=== PATIENT | male | born 1945 | race Caucasian/White ===

== ENCOUNTER 2017-11-30 10:00 | Inpatient (IN) ==
[2017-11-30 12:51] LABS: Appearance,Urine HAZY; Bacteria,Urine 0 /hpf (0); Bilirubin,Urine NEG (NEG); Color,Urine YELLOW; Glucose,Urine (UA) NEGATIVE (NEG); Leukocyte Esterase,Urine 25 /uL (NEG); Mucus,Urine FEW /hpf (0); Protein,Urine 30 mg/dL (NEG); Specific Gravity,Urine 1.027 (1.000-1.035); Urine Blood NEG mg/dL (<0.03); Urine RBC 3 /hpf (0-1); Urine Squamous Epithelial Cell 1 /hpf (0-4); Urine WBC 17 /hpf (0-4)
[2017-11-30 13:01] LABS: Basophils # (Auto) 0 K/mcL (0.0-0.3); Basophils % (Auto) 0.5 % (0.0-2.0); Eosinophils # (Auto) 0.2 K/mcL (0.0-0.7); Eosinophils % (Auto) 2.6 % (0.0-7.0); Lymphocytes % (Auto) 31.3 % (15.5-49.0); Mean Cell Volume 89.7 fL (80.0-100.0); Mean Corpuscular HGB Conc 33.8 g/dL (31.0-36.0); Mean Corpuscular Hemoglobin 30.3 pg (26.0-34.0); Monocytes # (Auto) 0.8 K/mcL (0.1-0.9); Monocytes % (Auto) 13.6 % (1.0-12.0); Platelet Count 202 K/mcL (140-440); RBC 4.96 M/mcL (4.50-5.90); Red Cell Distribution Width 13.5 % (11.5-14.5)
[2017-11-30 13:15] LABS: Blood Urea Nitrogen 20 mg/dl (8-23)
[2017-12-04] MEDS ORDERED: CELECOXIB 200 MG CAPSULE PO SCH (06:00)
[2017-12-04] MEDS ORDERED: ceFAZolin 1 GM VIAL IV SCH (06:00)
[2017-12-04] MEDS ORDERED: ACETAMINOPHEN 500 MG TABLET PO SCH (06:00)
[2017-12-04] MEDS ORDERED: PREGABALIN 75 MG CAPSULE PO SCH (06:00)
[2017-12-04] MEDS ORDERED: oxyCODONE 10 MG TAB.ER.12H PO SCH (06:00)
[2017-12-04 07:26] LABS: Appearance,Urine HAZY; Bacteria,Urine 0 /hpf (0); Bilirubin,Urine NEG (NEG); Color,Urine YELLOW; Glucose,Urine (UA) NEGATIVE (NEG); Leukocyte Esterase,Urine NEG /uL (NEG); Mucus,Urine FEW /hpf (0); Protein,Urine NEG (NEG); Specific Gravity,Urine 1.014 (1.000-1.035); Urine Blood 0.03 mg/dL (<0.03); Urine Hyaline Cast 1 /lpf (0-2); Urine RBC 1 /hpf (0-1); Urine Squamous Epithelial Cell < 1 /hpf (0-4); Urine WBC 3 /hpf (0-4); Urobilinogen,Urine NEG (NEG)
[2017-12-04] MEDS ORDERED: 0.9 % SODIUM CHLORIDE 9 ML, KETOROLAC 30 MG, ROPIVACAINE HCL/PF 49.5 ML, EPINEPHrine 0.... IJ SCH (08:00)
[2017-12-04] MEDS ORDERED: TRANEXAMIC ACID 1,000 MG/10 ML VIAL IV ONE (08:40)
[2017-12-04] MEDS ORDERED: KETAMINE 100 MG/ML ML IV ONE (08:40)
[2017-12-04] MEDS ORDERED: LIDOCAINE HCL/PF 100 MG/5 ML SYRINGE IV ONE (08:40)
[2017-12-04] MEDS ORDERED: ROPIVACAINE HCL/PF 30 ML VIAL IJ ONE (08:40)
[2017-12-04] MEDS ORDERED: fentaNYL 100 MCG/2 ML VIAL IV ONE (08:40)
[2017-12-04] MEDS ORDERED: HYDROmorphone 2 MG/ML VIAL IV ONE (08:40)
[2017-12-04] MEDS ORDERED: PROPOFOL 200 MG/20 ML VIAL IV ONE (08:40)
[2017-12-04] MEDS ORDERED: ONDANSETRON 4 MG/2 ML VIAL IV ONE (08:40)
[2017-12-04] MEDS ORDERED: MIDAZOLAM 2 MG/2 ML VIAL IV ONE (08:40)
[2017-12-04] MEDS ORDERED: DEXAMETHASONE 10 MG/ML VIAL IV ONE (08:40)
[2017-12-04] MEDS ORDERED: GENTAMICIN SULFATE 800 MG/20 ML VIAL IR ONE (09:06)
[2017-12-04] MEDS ORDERED: MEPERIDINE 25 MG/ML SYRINGE IV PRN (09:43)
[2017-12-04] MEDS ORDERED: HYDROmorphone 2 MG/ML VIAL IV PRN ×2 (09:43→10:11)
[2017-12-04] MEDS ORDERED: NALOXONE HCL 0.4 MG/ML VIAL IV PRN (09:43)
[2017-12-04] MEDS ORDERED: FLUMAZENIL 0.1 MG/ML ML IV PRN (09:43)
[2017-12-04] MEDS ORDERED: IPRATROPIUM/ALBUTEROL 3 ML AMPUL.NEB NEB PRN (09:43)
[2017-12-04] MEDS ORDERED: LACTATED RINGERS 250 ML IV PRN (09:43)
[2017-12-04] MEDS ORDERED: BENZOCAINE/MENTHOL 1 LOZENGE PO PRN ×2 (09:43→10:11)
[2017-12-04] MEDS ORDERED: diphenhydrAMINE 50 MG/ML VIAL IV PRN (09:43)
[2017-12-04] MEDS ORDERED: ONDANSETRON 4 MG/2 ML VIAL IV PRN ×2 (09:43→10:11)
[2017-12-04] MEDS ORDERED: PROMETHAZINE 25 MG/ML VIAL IV PRN (09:43)
[2017-12-04] MEDS ORDERED: LACTATED RINGERS 1,000 ML IV SCH (09:45)
[2017-12-04] MEDS ORDERED: MAGNESIUM HYDROXIDE 30 ML ORAL.SUSP PO PRN (10:11)
[2017-12-04] MEDS ORDERED: FLEETS ADULT ENEMA PR PRN (10:11)
[2017-12-04] MEDS ORDERED: BISACODYL 10 MG SUPP.RECT PR PRN (10:11)
[2017-12-04] MEDS ORDERED: TRANEXAMIC ACID 1,000 MG/10 ML VIAL IV SCH (10:11)
[2017-12-04] MEDS ORDERED: POLYETHYLENE GLYCOL 3350 17 GM PACKET PO PRN (10:11)
[2017-12-04] MEDS ORDERED: ACETAMINOPHEN 325 MG TABLET PO PRN (10:11)
--- NOTE | 2017-12-04 10:11 | Brief Operative Note ---
Date of procedure: 12/04/17 Pre-op diagnosis: left knee djd severe Post-op diagnosis: same Procedure: left knee robotic tka Grafts/Implants: Yes Anesthesia: GETA Complications Description: 12/04/17 10:10 none Surgeon: Howie Ramirez Accounting File Clerk: Zeb Rodríguez Estimated blood loss (cc): 20 Tourniquet Time (Minutes): 45 Specimens Removed/Pathology: none sent Condition: stable Disposition: PACU
[2017-12-04] MEDS: fentaNYL 100 MCG/2 ML VIAL IV PRN ×2 (10:45→10:54)
--- NOTE | 2017-12-04 10:54 | XRay Report ---
CLINICAL INFORMATION: Postsurgical follow-up TECHNIQUE: AP and crosstable lateral left knee COMPARISON: None. FINDINGS: Status post left total knee arthroplasty. Femoral and tibial components are in anatomic positions. There is postsurgical intra-articular and soft tissue gas IMPRESSION: Left total knee arthroplasty Interpreted and Authenticated by: Art Gonzalez 12/04/17
--- NOTE | 2017-12-04 11:36 | Operative Note ---
DATE OF OPERATION: 12/04/2017 PREOPERATIVE DIAGNOSIS: Left knee degenerative arthritis and recurvatum. POSTOPERATIVE DIAGNOSIS: Left knee degenerative arthritis and recurvatum. PROCEDURE: Left total knee arthroplasty using [employer]ense robot surgery. SURGEON: Howie Ramirez MD EXECUTIVE ADVISOR: Zeb Rodríguez PA-C. ANESTHESIA: General LMA anesthesia. COMPLICATIONS: None. TOTAL TOURNIQUET TIME: 45 minutes. DESCRIPTION OF PROCEDURE: The patient was brought to the operating room and put to sleep with general LMA anesthesia. Once asleep, the patient had the left leg sterilely prepped and draped in the usual sterile fashion. Once this was performed and we confirmed the operative site, we made a midline incision, and a mid vastus approach was performed. We inspected the knee showing severe wear of the lateral compartment and the patellofemoral joint was severe. We proceeded with a total knee arthroplasty. We brought in the robot and reregistered and corrected both recurvatum and varus valgus instability. These components had been preset using the CT scan technology. Once done, we then perfectly balanced. We then registered all points and proceeded with a total knee arthroplasty. The robot was brought in and made the cuts, removed the bony fragments and spurs, perfectly balanced the knee and implanted a size 6 femur and tibial baseplate with a 13 mm poly. There was no complication. The patient tolerated this well without difficulty. We then resurfaced the patella with a 36 mm patellar button. Once done, we then cemented all these components into place. Excess cement was removed. We preserved the posterior cruciate ligament. We then closed with a mid vastus approach using a Stratafix suture. This fit very nicely. We closed the skin with 2-0 Vicryl and adhesive closure. Tourniquet time was approximately 45 minutes. There was no complication. RBH:blanca Job ID: [id number] Doc ID: [id number] Howie Ramirez MD
[2017-12-04] MEDS: 0.45 % SODIUM CHLORIDE 1,000 ML IV SCH ×2 (12:28→21:19)
[2017-12-04] MEDS: KETOROLAC 15 MG/ML VIAL IV SCH ×3 (12:29→23:59)
[2017-12-04] MEDS: 0.9 % SODIUM CHLORIDE 10 ML SYRINGE IV SCH ×2 (13:35→21:51)
[2017-12-04] MEDS: ceFAZolin 1 GM VIAL IV SCH ×2 (16:05→23:59)
[2017-12-04] MEDS: METHOCARBAMOL 750 MG TABLET PO PRN (17:26)
[2017-12-04] MEDS: oxyCODONE/APAP 5/325MG TABLET PO PRN ×2 (17:54→21:51)
[2017-12-04] MEDS ORDERED: TEMAZEPAM 15 MG CAPSULE PO PRN (21:00)
[2017-12-04] MEDS ORDERED: SENNOSIDES 1 TABLET PO SCH (21:00)
[2017-12-04] MEDS ORDERED: ETODOLAC 500 MG PO SCH (21:00)
[2017-12-04] MEDS: DOCUSATE SODIUM 100 MG CAPSULE PO SCH (21:51)
[2017-12-04] MEDS: ASPIRIN 325 MG ENTERIC COATED TABLET PO SCH (21:52)
[2017-12-05] MEDS: 0.45 % SODIUM CHLORIDE 1,000 ML IV SCH (05:24)
[2017-12-05] MEDS: KETOROLAC 15 MG/ML VIAL IV SCH ×2 (05:36→12:30)
[2017-12-05] MEDS: 0.9 % SODIUM CHLORIDE 10 ML SYRINGE IV SCH (05:36)
[2017-12-05] MEDS: oxyCODONE/APAP 5/325MG TABLET PO PRN ×2 (05:36→09:28)
--- NOTE | 2017-12-05 07:37 | Orthopedic Progress Note ---
Subjective Patient information: Note initiated : 12/05/17 at 7:36 am Service Date, if different from initiated Date: [] Patient: Rick Heredia 72 y/o M admitted on 12/04/17 for Left Total Knee Arthroplasty - [place]. Chief Complaint: [Pt is stable this morning on post operative day 1 without any significant concerns or complaints. Patients vital signs have remained stable. Patients dressing is dry and is grossly instact from a neurovascular and motor standpoint. Patients 10 point ROS is otherwise negative. ] Objective Vital signs: Vital Signs Temp Pulse Resp BP BP Pulse Ox 12/05/17 06:29 97.4 F 62 18 144/92 95 12/05/17 05:43 97 12/05/17 03:16 97.5 F 58 L 18 153/81 95 12/05/17 00:00 97.7 F 60 16 128/80 96 12/04/17 22:00 96 12/04/17 19:22 98.3 F 72 16 149/78 96 12/04/17 17:56 97 12/04/17 14:11 97 12/04/17 14:06 132/82 95 12/04/17 13:06 131/77 95 12/04/17 12:37 114/73 92 12/04/17 12:06 131/80 95 12/04/17 11:52 132/80 97 12/04/17 11:36 128/87 95 12/04/17 11:21 143/83 94 12/04/17 11:15 98 12/04/17 11:07 134/67 94 12/04/17 11:00 66 15 152/81 96 12/04/17 10:53 61 13 140/88 96 12/04/17 10:48 67 12 156/90 97 12/04/17 10:43 68 15 146/92 98 12/04/17 10:38 66 14 159/80 96 12/04/17 10:33 64 8 L 143/79 96 12/04/17 10:28 66 10 L 126/67 96 12/04/17 10:23 97.2 F 95 H 8 L 116/63 95 12/04/17 08:00 97.2 F 61 13 140/88 96 Intake and Output 12/04/17 12/05/17 12/05/17 21:59 05:59 13:59 Intake Total 800 / 800 950 / 950 980 / 980 Output Total 1425 / 1425 2024 Balance -625 / -625 -1075 / -1075 980 / 980 Intake: Oral 800 / 800 950 / 950 980 / 980 Output: Void Amount 142 / 1425 2024 Other: # Bowel Movements 1 Weight 291 lb Intake & Output: Intake & Output 12/04/17 12/05/17 12/05/17 21:59 05:59 13:59 Intake Total 800 / 800 950 / 950 980 / 980 Output Total 1425 / 1425 2024 Balance -625 / -625 -1075 / -1075 980 / 980 Weight 291 lb Intake: Oral 800 / 800 950 / 950 980 / 980 Output: Void Amount 142 / 1425 2024 Other: # Bowel Movements 1 Incision: Yes healing Incision clean and dry: Yes Dressing: Yes clean, Yes dry Weight bearing status: full Neurological exam IM: Yes motor sensory intact, Yes neurovascular intact Extremities exam IM: Yes Foot pink and warm, Yes neurovascular intact - Labs CBC & BMP: 12/05/17 04:30 11/30/17 10:41 Labs: Orthopedic Labs 11/30/17 10:41 PT 13.2 INR 1.0 APTT 34 12/05/17 11/30/17 04:30 10:41 Hgb 15.1 Hct 40.4 L 44.5 Assessment and Plan (1) Hx of total knee arthroplasty The patient has been educated regarding dressing care, Physical Therapy recommendations, home exercises, restrictions, and follow up appointments. The patient has had all necessary DME prescribed. The patient has remained relatively stable during their hospital course. Status: Acute
--- NOTE | 2017-12-05 07:40 | Discharge Summary ---
Ortho Discharge - TKA - Patient Instructions Diet: Regular Diet Activity: activity as tolerated, weight bearing as tolerated Total Knee Protocol: For Total Knee: Start ROM ALEJANDRA with stationary bike or rocking chair. Work on gaining full extension of knee. Posterior dislocation precautions provided. Hip abductor strengthening and gait training instructions provided. Apply Cryocuff as instructed. Dressing Care: May shower in 2 days - Problem Maintenance (1) Hx of total knee arthroplasty Status: Acute - Follow Up Plan Follow Up Appointments: Zeb Rodríguez PA-C [Physician Prop Making Supervisor] - 12/19/17 10:10 am Disposition: Home, Self-Care Prognosis: Good Rehab Potential: Good I certify that the patient requires SNF services: No Overall status at discharge: patient is progressing back to baseline - Orders For Discharge Prescriptions: Aspirin [Ecotrin] 325 mg PO BID #60 tab.ec Docusate Sodium [Colace] 100 mg PO BID #60 capsule oxyCODONE/APAP [Percocet 5-325 mg] 1 - 2 tab PO Q4HP PRN #75 tablet PRN Reason: Pain Level 3-6
[2017-12-05] MEDS: DOCUSATE SODIUM 100 MG CAPSULE PO SCH (08:08)
[2017-12-05] MEDS: ASPIRIN 325 MG ENTERIC COATED TABLET PO SCH (08:10)
[2017-12-05] MEDS ORDERED: MAGNESIUM OXIDE 400 MG TABLET PO SCH (09:00)
[2017-12-05] MEDS ORDERED: MULTIVIT,THER IRON,CA,FA & MIN 1 TABLET PO SCH (09:00)
[2017-12-05] MEDS ORDERED: HYDROCHLOROTHIAZIDE 25 MG TABLET PO SCH (09:00)
[2017-12-05] MEDS ORDERED: SAW PALMETTO FRUIT 900 MG PO SCH (09:00)
[2017-12-05] MEDS ORDERED: CALCIUM (OYSTER SHELL) 500 MG TABLET PO SCH (09:00)
[2017-12-05] MEDS ORDERED: ATORVASTATIN 20 MG TABLET PO SCH (09:00)
[2017-12-05] MEDS ORDERED: VITAMIN D3 5,000 UNIT CAPSULE PO SCH (09:00)
[2017-12-05] MEDS ORDERED: NON FORMULARY MEDICATION 1 DOSE MISCELL (Aspirin [Adult Low Dose Aspirin Ec] 81 MG) PO SCH (09:00)
[2017-12-05] MEDS ORDERED: VITAMIN B COMPLEX 1 CAPSULE PO SCH (09:00)
[2017-12-05] MEDS ORDERED: CYANOCOBALAMIN (VITAMIN B-12) 500 MCG TABLET PO SCH (09:00)
[2017-12-05] MEDS: METHOCARBAMOL 750 MG TABLET PO PRN (09:28)
== END 2017-12-05 12:50 | disposition home or self-care (01) | DRG 470 ==
LOC: MEDSUR 12-04 06:17
PROVIDERS: ADMIT Orthopaedic Surgery; ATTEND Orthopaedic Surgery